=== PATIENT | male | born 1985 ===

== ENCOUNTER 2020-11-30 22:51 | Emergency (ER) | payer BC, OTHER ==
--- NOTE | 2020-11-30 23:09 | EDM.PDOC ---
ED HPI GENERAL MEDICAL PROBLEM - General Chief Complaint: Respiratory Problem Stated Complaint: POSSIBLE COVID AND PNEUMONIA Time Seen by Provider: 11/30/20 23:07 - History of Present Illness INITIAL COMMENTS - FREE TEXT/NARRATIVE: History of present illness: [] The patient's been sick with weakness body aches cough shortness of breath for 1 week. For the last few days his stool has been loose and liquid. He only has 1 stool a day. He does feel weak and feels like he is not eating and drinking because his taste is gone. The patient's was diagnosed 10 days ago with COVID-19 and she is markedly improved already. Review of systems: As per history of present illness and below otherwise all systems reviewed and negative. Past medical history: As per history of present illness and as reviewed below otherwise nonc ontributory. Surgical history: As per history of present illness and as reviewed below otherwise noncontributory. Social history: No reported history of drug or alcohol abuse. Family history: As per history of present illness and as reviewed below otherwise noncontributory. Physical exam: Constitutional - well developed, well-nourished and in no acute distress HEENT - normocephalic, no evidence of trauma - external nose and mouth normal - no mass in neck and no JVD - mucosae moist EYES - full EOM, PERRL, no icterus - no evidence of inflammation, injection, or drainage Respiratory - no respiratory distress, equal bilateral expansion, lungs clear to auscultation and no abnormal lung sounds Cardiovascular - Regular Rhythm with S1 and S2 appreciated and no murmur, gallop or rub. GI - abdomen soft without distension or organomegaly - normal bowel sounds - no guard or rebound Musculoskeletal no gross deformity of long bones or joints - no tenderness, swelling or edema Neurologic - Alert and oriented times four - CN II-XII grossly intact - motor sensory and coordination symmetrically normal Psychiatric - appropriate mood and affect with normal thought content Hematologic - No petechiae or purpura - mucosa appropriate color and sclera not pale - normal nail bed color and refill Integument - no rash or evidence of trauma - normal turgor Diagnostics: [] Therapeutics: [] Impression: [] Plan: [] Definitive disposition and diagnosis as appropriate pending reevaluation and review of above. - Related Data Allergies Allergy/AdvReac Type Severity Reaction Status Date / Time Penicillins Allergy Difficulty Verified 11/30/20 23:06 Swallowing Home Meds: Home Meds . [No Known Home Meds] 11/30/20 [History] ED ROS GENERAL - Review of Systems Review Of Systems: Comprehensive ROS is negative, except as noted in HPI. ED EXAM, GENERAL - Physical Exam Exam: See Below Free Text/Narrative:: My physical exam is in the HPI Course - Vital Signs Last Recorded V/S: Last Vital Signs Temp 36.5 C 11/30/20 22:58 Pulse 101 H 11/30/20 22:58 Resp 18 11/30/20 22:58 BP 112/73 11/30/20 22:58 Pulse Ox 92 L 11/30/20 22:58 - Orders/Labs/Meds Orders: Active Orders 24 hr Category Date Time Status Sodium Chloride 0.9% [Normal Saline] 1,000 ml Med 11/30/20 23:30 Active IV ASDIRECTED Sodium Chloride 0.9% [Saline Flush] Med 11/30/20 23:27 Active 10 ml FLUSH ASDIRECTED PRN Sodium Chloride 0.9% [Saline Flush] Med 11/30/20 23:27 Active 2.5 ml FLUSH ASDIRECTED PRN Saline Lock Insert [OM.PC] Stat Oth 11/30/20 23:28 Ordered Medication Orders Sodium Chloride (Normal Saline) 1,000 mls @ 250 mls/hr IV ASDIRECTED REBA Last Admin: 11/30/20 23:48 Dose: 250 mls/hr Documented by: ELLENKRJael Sodium Chloride (Sodium Chloride 0.9% 10 Ml Syringe) 10 ml FLUSH ASDIRECTED PRN PRN Reason: Keep Vein Open Sodium Chloride (Sodium Chloride 0.9% 2.5 Ml Syringe) 2.5 ml FLUSH ASDIRECTED PRN PRN Reason: Keep Vein Open Labs: Laboratory Tests 11/30/20 11/30/20 11/30/20 Range/Units 23:05 23:45 23:45 WBC 7.22 (4.0-11.0) K/uL RBC 4.38 L (4.50-5.90) M/uL Hgb 13.3 (13.0-17.0) g/dL Hct 38.6 (38.0-50.0) % MCV 88.1 (80.0-98.0) fL MCH 30.4 (27.0-32.0) pg MCHC 34.5 (31.0-37.0) g/dL RDW Std Deviation 39.8 (28.0-62.0) fl RDW Coeff of Lissa 12 (11.0-15.0) % Plt Count 313 (150-400) K/uL MPV 9.80 (7.40-12.00) fL Neut % (Auto) 59.9 (48.0-80.0) % Lymph % (Auto) 27.3 (16.0-40.0) % Lane % (Auto) 11.4 (0.0-15.0) % Eos % (Auto) 1.1 (0.0-7.0) % Baso % (Auto) 0.3 (0.0-1.5) % Neut # (Auto) 4.3 (1.4-5.7) K/uL Lymph # (Auto) 2.0 (0.6-2.4) K/uL Lane # (Auto) 0.8 (0.0-0.8) K/uL Eos # (Auto) 0.1 (0.0-0.7) K/uL Baso # (Auto) 0.0 (0.0-0.1) K/uL Nucleated RBC % 0.0 /100WBC Nucleated RBCs # 0 K/uL Sodium 139 (136-148) mmol/L Potassium 3.3 L (3.5-5.1) mmol/L Chloride 101 (98-107) mmol/L Carbon Dioxide 30.5 (21.0-32.0) mmol/L BUN 16 (7.0-18.0) mg/dL Creatinine 1.0 (0.8-1.3) mg/dL Est Cr Clr Drug Dosing 107.72 mL/min Estimated GFR (MDRD) > 60.0 ml/min Glucose 123 H (74-106) mg/dL Calcium 8.6 (8.5-10.1) mg/dL Total Bilirubin 1.7 H (0.2-1.0) mg/dL AST 104 H (15-37) IU/L ALT 124 H (14-63) IU/L Alkaline Phosphatase 94 (46-116) U/L Total Protein 7.4 (6.4-8.2) g/dL Albumin 3.5 (3.4-5.0) g/dL Globulin 3.9 (2.6-4.0) g/dL Albumin/Globulin Ratio 0.9 (0.9-1.6) SARS-CoV-2 RNA (SIGRID) POSITIVE H (NEGATIVE) Meds: Medications Generic Name Dose Route Start Last Admin Trade Name Freq PRN Reason Stop Dose Admin Sodium Chloride 1,000 mls @ 250 mls/hr 11/30/20 23:30 11/30/20 23:48 Normal Saline IV 250 mls/hr ASDIRECTED REBA Administration Sodium Chloride 10 ml 11/30/20 23:27 Sodium Chloride 0.9% 10 Ml Syringe FLUSH ASDIRECTED PRN Keep Vein Open Sodium Chloride 2.5 ml 11/30/20 23:27 Sodium Chloride 0.9% 2.5 Ml Syringe FLUSH ASDIRECTED PRN Keep Vein Open Departure - Departure Time of Disposition: 00:26 Disposition: Home, Self-Care 01 Condition: Good Clinical Impression: COVID-19, Elevated transaminase level, Hypokalemia - Discharge Information Instructions: COVID-19 Vaccine Information, COVID-19 Frequently Asked Questions, Hypokalemia, 10 Things You Can Do to Manage Your COVID-19 Symptoms at Home - [facility] (10/05/2019), COVID-19: What to Do if You Are Sick - [facility] (04/05/2020), COVID-19: Quarantine vs. Isolation - [facility] (03/22/2020) Referrals: PCP,None [Primary Care Provider] - Forms: ED Department Discharge Additional Instructions: Your potassium is a little low. Please review the diet instructions and try to lean your diet towards more potassium containing compounds. Your liver enzymes are slightly elevated and you should have them rechecked after you recover. In the meantime avoid Tylenol or alcohol or anything that might damage her liver. [facility] - [facility] [address] [place] [id number] [facility] [address] [place] [address] The following information is given to patients seen in the emergency department who are being discharged to home. This information is to outline your options for follow-up care. We provide all patients seen in our emergency department with a follow-up referral. The need for follow-up, as well as the timing and circumstances, are variable depending upon the specifics of your emergency department visit. If you don't have a primary care physician on staff, we will provide you with a referral. We always advise you to contact your personal physician following an emergency department visit to inform them of the circumstance of the visit and for follow-up with them and/or the need for any referrals to a consulting specialist. The emergency department will also refer you to a specialist when appropriate. This referral assures that you have the opportunity for follow-up care with a specialist. All of these measure are taken in an effort to provide you with optimal care, which includes your follow-up. Under all circumstances we always encourage you to contact your private physician who remains a resource for coordinating your care. When calling for follow-up care, please make the office aware that this follow-up is from your recent emergency room visit. If for any reason you are refused follow-up, please contact the [facility] Emergency Department at and asked to speak to the emergency department charge nurse. Sepsis Event Note (ED) - Focused Exam Vital Signs: Vital Signs Temp Pulse Resp BP Pulse Ox 11/30/20 22:58 36.5 C 101 H 18 112/73 92 L - My Orders Last 24 Hours: My Active Orders 11/30/20 23:27 Sodium Chloride 0.9% [Saline Flush] 10 ml FLUSH ASDIRECTED PRN Sodium Chloride 0.9% [Saline Flush] 2.5 ml FLUSH ASDIRECTED PRN 11/30/20 23:28 Saline Lock Insert [OM.PC] Stat 11/30/20 23:30 Sodium Chloride 0.9% [Normal Saline] 1,000 ml IV ASDIRECTED - Assessment/Plan Last 24 Hours: My Active Orders 11/30/20 23:27 Sodium Chloride 0.9% [Saline Flush] 10 ml FLUSH ASDIRECTED PRN Sodium Chloride 0.9% [Saline Flush] 2.5 ml FLUSH ASDIRECTED PRN 11/30/20 23:28 Saline Lock Insert [OM.PC] Stat 11/30/20 23:30 Sodium Chloride 0.9% [Normal Saline] 1,000 ml IV ASDIRECTED
[2020-11-30] MEDS ORDERED: Sodium Chloride 0.9% 2.5 ML Syringe FLUSH PRN (23:27)
[2020-11-30] MEDS ORDERED: Sodium Chloride 0.9% 10 ML Syringe FLUSH PRN (23:27)
[2020-11-30] MEDS ORDERED: Sodium Chloride 0.9% 1,000 ML IV SCH (23:30)
--- NOTE | 2020-11-30 23:56 | CR ---
HISTORY: Cough and shortness of breath. COMPARISON: None available FINDINGS: A portable erect AP view of the chest was obtained at 23 37 hours. There are mild patchy infiltrates in the mid and lower lungs, more prominent on the left than the right. In the appropriate clinical setting, this could be early COVID-19 pneumonia. The heart is normal in size. The mediastinum is normal in appearance. The osseous structures are normal in appearance for the patient`s age. IMPRESSION: Mild patchy left greater than right mid and lower lung infiltrates, consider COVID-19. Dictated by Ziggy Payan MD @ 11/30/2020 11:54:[address] Ziggy Payan @ Nov 30 2020 11:54PM
[2020-12-01 00:15] LABS: BLOOD UREA NITROGEN,BUN 16 mg/dL (7.0-18.0); CARBON DIOXIDE,CO2 30.5 mmol/L (21.0-32.0); CHLORIDE,CL 101 mmol/L (98-107); GLUCOSE RANDOM 123 mg/dL (74-106); POTASSIUM,K 3.3 mmol/L (3.5-5.1); SODIUM,NA 139 mmol/L (136-148)
== END 2020-12-01 00:48 | disposition home or self-care (01) ==
LOC: EDSEX 22:51 → MW.ED 22:51
DX: U07.1 COVID-19 (principal); E87.6 Hypokalemia; R74.01 Elevation of levels of liver transaminase levels; Z88.0 Allergy status to penicillin
CPT/HCPCS: 36415; 71045; 80053; 85025; 87635; 99285; J7030; U0002